=== PATIENT | female | born 1985 | race Two or more races ===

== ENCOUNTER 2017-02-28 13:43 | Inpatient (IN) | payer MEDICAID ==
[~2017-02-28] VITALS: Ht 167.6 cm; Wt 103.9 kg
[2017-02-28 15:10] LABS: ALBUMIN 3.4 g/dL (3.4-5.0); ALKALINE PHOSPHATASE 90 U/L (46-116); ALT/SGPT 34 U/L (14-59); AST/SGOT 19 U/L (15-37); BILIRUBIN TOTAL 0.4 mg/dL (0.20-1.00); CARBON DIOXIDE 26.8 mmol/L (21-32); CHLORIDE SERUM 105 mmol/L (98-107); CREATININE SERUM 0.6 mg/dL (0.6-1.0); GFR1 > 60 mL/min; GLUCOSE SERUM 107 mg/dL (74-106); LIPASE 135 IU/L (73-393); POTASSIUM SERUM 3.6 mmol/L (3.5-5.1); SODIUM SERUM 139 mmol/L (136-145); TOTAL PROTEIN, SERUM 7.9 g/dL (6.4-8.2)
[2017-02-28 15:14] LABS: CALCIUM 8.5 mg/dL (8.5-10.1)
[2017-02-28 15:24] LABS: PLATELET COUNT 274 x10^3mcL (130-400)
[2017-02-28 15:41] LABS: RED CELL DISTRIBUTION WIDTH 21.4 % (11.5-14.5)
[2017-02-28 16:05] LABS: BAND NEUTROPHIL 5 % (0-10); MONOCYTE 7 % (0-7); SEGMENTED NEUTROPHILS 66 % (37-75)
[2017-02-28 16:06] LABS: rbc morphology (normal/abnorm) ABNORMAL (NORMAL)
[2017-02-28 16:07] LABS: ovalocyte/elliptocyte 1+
[2017-02-28 17:27] LABS: MAGNESIUM 2.1 mg/dL (1.8-2.4); PHOSPHOROUS 3.6 mg/dL (2.5-4.9)
[2017-02-28 17:33] LABS: RED BLOOD CELLS 5.09 M/mm3 (4.10-5.10)
[2017-02-28 17:36] LABS: TOTAL IRON BINDING CAPACITY 387 ug/dL (250-450)
[2017-02-28 17:38] LABS: IRON 13 ug/dL (50-170)
[2017-02-28 17:40] LABS: FREE T4 1.17 ng/dL (0.76-1.46); FREE THYROXINE INDEX 2.8 ug/dL (1.4-4.5); T4(THYROXINE) 8.1 ug/dL (4.7-13.3)
[2017-02-28 17:42] LABS: T3 TOTAL 0.94 ng/mL
[2017-02-28 18:03] VITALS: BP 137/78
[2017-02-28 21:38] VITALS: BP 109/53
[2017-02-28 22:26] LABS: microscopic required? NO
[2017-02-28 22:31] LABS: UA SPECIFIC GRAVITY 1.015 (1.005-1.035); urine erythrocyte NEGATIVE (NEGATIVE)
[2017-02-28 22:49] LABS: AMPHETAMINE QUAL UR NONE DETECTED (NEG <=1000)
[2017-03-01 06:18] VITALS: BP 108/57
[2017-03-01 06:48] LABS: CALCIUM 8.2 mg/dL (8.5-10.1); CARBON DIOXIDE 25.4 mmol/L (21-32); CHLORIDE SERUM 109 mmol/L (98-107); CREATININE SERUM 0.6 mg/dL (0.6-1.0); GFR1 > 60 mL/min; GLUCOSE SERUM 90 mg/dL (74-106); MAGNESIUM 2.1 mg/dL (1.8-2.4); PHOSPHOROUS 3.5 mg/dL (2.5-4.9); SODIUM SERUM 143 mmol/L (136-145)
[2017-03-01 06:52] LABS: BASOPHIL % 0.5 % (0-2); PLATELET COUNT 250 x10^3mcL (130-400); RED CELL DISTRIBUTION WIDTH 20.9 % (11.5-14.5)
[2017-03-01 08:37] VITALS: BP 119/68
[2017-03-01 14:11] VITALS: BP 112/59
[2017-03-01 17:18] VITALS: BP 115/62
[2017-03-01 21:03] VITALS: BP 119/56
[2017-03-02 05:42] VITALS: BP 114/62
[2017-03-02 06:28] LABS: BASOPHIL % 0.6 % (0-2); PLATELET COUNT 266 x10^3mcL (130-400)
[2017-03-02 06:36] LABS: RED CELL DISTRIBUTION WIDTH 20.6 % (11.5-14.5)
[2017-03-02 07:13] LABS: CALCIUM 8.4 mg/dL (8.5-10.1); CARBON DIOXIDE 24.5 mmol/L (21-32); CHLORIDE SERUM 105 mmol/L (98-107); CREATININE SERUM 0.6 mg/dL (0.6-1.0); GFR1 > 60 mL/min; GLUCOSE SERUM 84 mg/dL (74-106); POTASSIUM SERUM 3.9 mmol/L (3.5-5.1); SODIUM SERUM 139 mmol/L (136-145)
[2017-03-02 08:39] VITALS: BP 110/56
[2017-03-02] MEDS ORDERED: FERROUS SULFAT325 M2 PO (14:28)
[2017-03-02] MEDS ORDERED: THE PO (14:29)
[2017-03-02] MEDS ORDERED: LEVAQUIN750 MG PO (14:30)
[2017-03-02] MEDS ORDERED: FLA500 PO (14:31)
[2017-03-02] MEDS ORDERED: COLACE100 MG PO (14:32)
[2017-03-02] MEDS ORDERED: LAC PO (14:32)
[2017-03-02] MEDS ORDERED: PHARMASSURE VI500 MG PO (14:33)
[2017-03-02] MEDS ORDERED: NORCO1 TA2 PO (14:37)
[2017-03-02] MEDS ORDERED: METFORMIN HCL500 MG PO (14:55)
[2017-03-02] MEDS ORDERED: ROBAXIN500 MG PO (15:01)
[2017-03-02] MEDS ORDERED: KONSYL0.52 GM PO (15:14)
[2017-03-02 15:26] VITALS: BP 110/56
== END 2017-03-02 17:59 | disposition home or self-care (01) | DRG 244 ==
LOC: ED 13:43 → DU 16:06 → MU 03-01 07:54
PROVIDERS: Emergency Medicine; Student in an Organized Health Care Education/Training Program; ADMIT Family Medicine
DX: K57.32 Diverticulitis of large intestine without perforation or abscess without bleeding (principal); E11.9 Type 2 diabetes mellitus without complications; D50.0 Iron deficiency anemia secondary to blood loss (chronic); E66.9 Obesity, unspecified; N92.0 Excessive and frequent menstruation with regular cycle; Z68.37 Body mass index [BMI] 37.0-37.9, adult
CPT/HCPCS: 82962; 83880; 84439; J1885; J1956; J2270; J2916; J3490; J7030; Q0092

== ENCOUNTER 2017-09-08 11:52 | Emergency (ER) | payer MEDICAID ==
[~2017-09-08] VITALS: Ht 162.6 cm; Wt 108.0 kg
[~2017-09-08 11:52] MED LIST: COLACE100 MG PO; FERROUS SULFAT325 M2 PO; FLA500 PO; KONSYL0.52 GM PO; LAC PO; LEVAQUIN750 MG PO; METFORMIN HCL500 MG PO; NORCO1 TA2 PO; PHARMASSURE VI500 MG PO; ROBAXIN500 MG PO; THE PO
[2017-09-08 11:56] VITALS: Ht 162.6 cm; Wt 108.0 kg
[2017-09-08 12:32] LABS: BASOPHIL % 0.4 % (0-2); PLATELET COUNT 242 x10^3mcL (130-400)
[2017-09-08 12:40] LABS: CALCIUM 8.3 mg/dL (8.5-10.1); CARBON DIOXIDE 25.9 mmol/L (21-32); CHLORIDE SERUM 103 mmol/L (98-107); CREATININE SERUM 0.7 mg/dL (0.6-1.0); GFR1 > 60 mL/min; GLUCOSE SERUM 116 mg/dL (74-106); POTASSIUM SERUM 3.8 mmol/L (3.5-5.1); SODIUM SERUM 140 mmol/L (136-145)
[2017-09-08 12:47] LABS: ALBUMIN 3.1 g/dL (3.4-5.0); ALKALINE PHOSPHATASE 88 U/L (46-116); ALT/SGPT 46 U/L (14-59); AMYLASE 42 U/L (25-115); AST/SGOT 30 U/L (15-37); BILIRUBIN TOTAL 0.28 mg/dL (0.20-1.00); LIPASE 126 IU/L (73-393); TOTAL PROTEIN, SERUM 7.1 g/dL (6.4-8.2)
[2017-09-08 14:08] VITALS: BP 121/80
== END 2017-09-08 14:00 | disposition home or self-care (01) ==
LOC: ED 11:52
PROVIDERS: Emergency Medicine
DX: R10.30 Lower abdominal pain, unspecified (principal); M54.9 Dorsalgia, unspecified; R05 Cough
CPT/HCPCS: 36415; 83880; J1885

== ENCOUNTER 2017-12-22 01:39 | Inpatient (IN) | payer MEDICAID ==
[~2017-12-22] VITALS: Ht 167.6 cm; Wt 106.6 kg
[2017-12-22 01:45] VITALS: Ht 167.6 cm; Wt 106.6 kg
[2017-12-22 02:22] LABS: microscopic required? NO
[2017-12-22 02:39] LABS: urine erythrocyte NEGATIVE (NEGATIVE)
[2017-12-22 02:39] LABS: CALCIUM 8.3 mg/dL (8.5-10.1); CARBON DIOXIDE 19.4 mmol/L (21-32); CHLORIDE SERUM 103 mmol/L (98-107); CREATININE SERUM 0.9 mg/dL (0.6-1.0); GFR1 > 60 mL/min; GLUCOSE SERUM 106 mg/dL (74-106); POTASSIUM SERUM 3.3 mmol/L (3.5-5.1); SODIUM SERUM 135 mmol/L (136-145)
[2017-12-22 02:44] LABS: ALBUMIN 3.4 g/dL (3.4-5.0); ALKALINE PHOSPHATASE 87 U/L (46-116); ALT/SGPT 27 U/L (14-59); AST/SGOT 25 U/L (15-37); BILIRUBIN TOTAL 0.57 mg/dL (0.20-1.00); TOTAL PROTEIN, SERUM 7.3 g/dL (6.4-8.2)
[2017-12-22 02:47] LABS: BASOPHIL % 0 % (0-2); PLATELET COUNT 203 x10^3mcL (130-400); RED CELL DISTRIBUTION WIDTH 18.6 % (11.5-14.5)
[2017-12-22 04:26] LABS: TOTAL IRON BINDING CAPACITY 420 ug/dL (250-450)
[2017-12-22 04:27] LABS: IRON 19 ug/dL (50-170)
[2017-12-22 04:30] LABS: T3 TOTAL 0.94 ng/mL
[2017-12-22 04:31] VITALS: BP 108/59
[2017-12-22 04:32] LABS: FREE T4 1.02 ng/dL (0.76-1.46); FREE THYROXINE INDEX 2.1 ug/dL (1.4-4.5); MAGNESIUM 1.6 mg/dL (1.8-2.4); PHOSPHOROUS 1.6 mg/dL (2.5-4.9); T4(THYROXINE) 6.1 ug/dL (4.7-13.3)
[2017-12-22 04:34] LABS: CHOLESTEROL/HDL RATIO 2.8
[2017-12-22 04:37] LABS: RED BLOOD CELLS 5.54 M/mm3 (4.10-5.10)
[2017-12-22 04:45] LABS: AMPHETAMINE QUAL UR NONE DETECTED (See below)
[2017-12-22 09:31] VITALS: BP 103/54
[2017-12-22 14:00] VITALS: BP 138/69
[2017-12-22 17:23] VITALS: BP 112/58
[2017-12-22 20:45] VITALS: BP 106/55
[2017-12-23 05:08] VITALS: BP 102/60
[2017-12-23 06:18] LABS: CALCIUM 7.7 mg/dL (8.5-10.1); CARBON DIOXIDE 20.3 mmol/L (21-32); CHLORIDE SERUM 107 mmol/L (98-107); CREATININE SERUM 0.7 mg/dL (0.6-1.0); GFR1 > 60 mL/min; GLUCOSE SERUM 84 mg/dL (74-106); MAGNESIUM 1.8 mg/dL (1.8-2.4); PHOSPHOROUS 1.9 mg/dL (2.5-4.9); POTASSIUM SERUM 3.6 mmol/L (3.5-5.1); SODIUM SERUM 138 mmol/L (136-145)
[2017-12-23 06:20] LABS: PLATELET COUNT 167 x10^3mcL (130-400)
[2017-12-23 06:45] LABS: RED CELL DISTRIBUTION WIDTH 19.5 % (11.5-14.5)
[2017-12-23 11:59] LABS: ATYPICAL LYMPH 1 %; BAND NEUTROPHIL 10 % (0-10); BASOPHIL 0 % (0-2); MONOCYTE 5 % (0-7); SEGMENTED NEUTROPHILS 74 % (37-75)
[2017-12-23 12:00] LABS: PLATELET MORPHOLOGY PLATELETS DECREASED; rbc morphology (normal/abnorm) ABNORMAL (NORMAL)
[2017-12-23 13:51] VITALS: BP 118/63
[2017-12-23] MEDS ORDERED: LEVAQUIN500 M1 PO (15:29)
[2017-12-23] MEDS ORDERED: LAC PO (15:30)
[2017-12-23] MEDS ORDERED: FLA500 PO (15:37)
[2017-12-23 17:41] VITALS: BP 127/77
[2017-12-23 18:03] VITALS: BP 127/77
== END 2017-12-23 18:37 | disposition home or self-care (01) | DRG 720 ==
LOC: ED 01:39 → DU 03:33
PROVIDERS: Emergency Medicine; Family Medicine
PROC: 0DB68ZX Excision of Stomach, Via Natural or Artificial Opening Endoscopic, Diagnostic (ICD-10-PCS; principal; 2017-12-22)
PROC: 0DBG8ZX Excision of Left Large Intestine, Via Natural or Artificial Opening Endoscopic, Diagnostic (ICD-10-PCS; 2017-12-22)
PROC: 0DBP8ZX Excision of Rectum, Via Natural or Artificial Opening Endoscopic, Diagnostic (ICD-10-PCS; 2017-12-22)
PROC: 0DBF8ZX Excision of Right Large Intestine, Via Natural or Artificial Opening Endoscopic, Diagnostic (ICD-10-PCS; 2017-12-22)
DX: A41.9 Sepsis, unspecified organism (principal); E83.39 Other disorders of phosphorus metabolism; K52.9 Noninfective gastroenteritis and colitis, unspecified; E83.42 Hypomagnesemia; E87.6 Hypokalemia; K64.8 Other hemorrhoids; D50.9 Iron deficiency anemia, unspecified; E66.9 Obesity, unspecified; Z68.37 Body mass index [BMI] 37.0-37.9, adult
CPT/HCPCS: 43235; 45378; 83880; 84439; J1200; J1610; J1885; J1956; J2250; J2310; J2405; J2916; J3010; J3490; J7030; J7040; Q0092

== ENCOUNTER 2019-07-20 23:35 | Emergency (ER) | payer MEDICAID ==
[~2019-07-20] VITALS: Ht 170.2 cm; Wt 109.3 kg
[~2019-07-20 23:35] MED LIST changes: +LEVAQUIN500 M1 PO
[2019-07-20 23:44] VITALS: Ht 170.2 cm; Wt 109.3 kg
[2019-07-21 02:27] LABS: ALBUMIN 3.2 g/dL (3.4-5.0); ALKALINE PHOSPHATASE 87 U/L (46-116); ALT/SGPT 107 U/L (14-59); AST/SGOT 63 U/L (15-37); BILIRUBIN TOTAL 0.28 mg/dL (0.20-1.00); CALCIUM 8.6 mg/dL (8.5-10.1); CARBON DIOXIDE 26.7 mmol/L (21-32); CHLORIDE SERUM 105 mmol/L (98-107); CREATININE SERUM 0.6 mg/dL (0.6-1.0); GFR1 > 60 mL/min; GLUCOSE SERUM 122 mg/dL (74-106); POTASSIUM SERUM 3.7 mmol/L (3.5-5.1); SODIUM SERUM 141 mmol/L (136-145); TOTAL PROTEIN, SERUM 7.2 g/dL (6.4-8.2)
[2019-07-21 02:34] LABS: AMYLASE 44 U/L (25-115); LIPASE 136 IU/L (73-393)
[2019-07-21 02:35] LABS: BASOPHIL % 0.3 % (0-2); PLATELET COUNT 211 x10^3mcL (130-400)
[2019-07-21 02:36] LABS: RED CELL DISTRIBUTION WIDTH 18.9 % (11.5-14.5)
[2019-07-21 03:35] VITALS: BP 105/59
== END 2019-07-21 03:36 | disposition home or self-care (01) ==
LOC: ED 23:35
PROVIDERS: Specialist
DX: R10.30 Lower abdominal pain, unspecified (principal); R11.2 Nausea with vomiting, unspecified; Z98.890 Other specified postprocedural states
CPT/HCPCS: 36415; J1885

== ENCOUNTER 2019-08-12 20:52 | Emergency (ER) | payer MEDICAID ==
[~2019-08-12] VITALS: Ht 172.7 cm; Wt 106.6 kg
[2019-08-12 21:09] VITALS: BP 129/72; Ht 172.7 cm; Wt 106.6 kg
== END 2019-08-12 23:57 | disposition home or self-care (01) ==
LOC: ED 20:52
DX: T78.1XXA Other adverse food reactions, not elsewhere classified, initial encounter (principal); L29.9 Pruritus, unspecified; X58.XXXA Exposure to other specified factors, initial encounter
CPT/HCPCS: J1200; J7512